=== PATIENT | female | born 2000 | race Caucasian/White ===

== ENCOUNTER 2020-01-13 02:11 | Emergency (ER) | payer OTHER ==
[~2020-01-13] VITALS: Ht 162.6 cm; Wt 74.6 kg
[2020-01-13] MEDS ORDERED: KETOROLAC 30 MG/1 ML ONE (02:40)
[2020-01-13] MEDS ORDERED: ONDANSETRON 2MG/ML, 2ML ONE (02:53)
[2020-01-13] MEDS ORDERED: SODIUM CHLORIDE 0.9% 1,000ML IVBOLUS ONE (03:00)
[2020-01-13] MEDS ORDERED: SODIUM CHLORIDE FLUSH 10ML SYR IVF ONE (03:00)
[2020-01-13] MEDS ORDERED: KETOROLAC 30 MG/1 ML IVPush ONE (03:00)
[2020-01-13 03:01] LABS: BASOPHILS % (AUTO) 0 % (0-1); EOSINOPHILS # (AUTO) 0.01 x10^3/uL (0-0.8); EOSINOPHILS % (AUTO) 0 % (1-7); LYMPHOCYTES # (AUTO) 0.69 x10^3/uL (1-6.1); LYMPHOCYTES % (AUTO) 8 % (22-44); MD NO; MEAN CORPUSCULAR HEMOGLOBIN 31.2 pg (27.0-34.8); MEAN CORPUSCULAR HGB CONC 34.4 g/dL (32.4-35.8); MEAN PLATELET VOLUME 8.4 fL (7.4-10.4); MONOCYTES # (AUTO) 0.49 x10^3/uL (0-1.4); MONOCYTES % (AUTO) 6 % (2-9); NEUTROPHILS # (AUTO) 7.13 x10^3/uL (1.8-8.0); NEUTROPHILS % (AUTO) 86 % (42-75); PLATELET COUNT 261 x10^3/uL (130-400); RED BLOOD COUNT 4.52 x10^6/uL (3.82-5.3); RED CELL DISTRIBUTION WIDTH 12.6 % (9.6-15.2)
--- NOTE | 2020-01-13 03:04 | NUR ---
patients right breast is red and warm to touch, she took out her nipple piercing. she reports she gotthe peircing done 2 years ago with no complications. she reports she changed the piercing 4 weeks ago but had no trouble with the piercing until a couple of days ago when she noticed her breast started to become red, warm to touch, painful and also some yellow drainage. she denies any trauma to the area.
[2020-01-13 03:10] LABS: ANION GAP 8 mmol/L (5-15); CALCIUM 8.7 mg/dL (8.5-10.1); CHLORIDE 109 mmol/L (98-107); CREATININE 0.85 mg/dL (0.55-1.02)
[2020-01-13 03:55] VITALS: BP 105/69
[2020-01-13] MEDS ORDERED: CEPHALEXIN 500 MG CAPSULE PO ONE (04:00)
[2020-01-13] MEDS ORDERED: SULFAMETH./TRIMETHOPRIM DS 800MG/160MG TABLET PO ONE (04:00)
[2020-01-13] MEDS ORDERED: SULFAMETH./TRIMETHOPRIM DS 800MG/160MG TABLET ONE (04:07)
[2020-01-13] MEDS ORDERED: CEPHALEXIN 500 MG CAPSULE ONE (04:07)
== END 2020-01-13 04:29 | disposition home or self-care (01) ==
LOC: ED 02:41
DX: N61.0 Mastitis without abscess (principal); R11.2 Nausea with vomiting, unspecified; R51 Headache; R00.0 Tachycardia, unspecified; F17.200 Nicotine dependence, unspecified, uncomplicated
CPT/HCPCS: 36415; 80048; 85025; 96361; 96374; 99284; J1885; J7030